=== PATIENT | female | born 1960 | race African-American/Black ===

== ENCOUNTER 2022-08-07 10:05 | Inpatient (IN) | payer MEDICARE, MEDICAID ==
[~2022-08-07] VITALS: Ht 160 cm; Wt 83.0 kg
[2022-08-07 11:15] LABS: BASOPHILS % 0.4 % (0.0-2.0); EOSINOPHILS % 0.2 % (0.0-5.0); HEMATOCRIT. 41.7 % (36.0-48.0); HEMOGLOBIN. 13.7 g/dL (12.0-16.0); MEAN CORPUSCULAR HEMOGLOBIN 28.9 pg (28.0-32.0); MEAN CORPUSCULAR VOLUME 88.4 fL (81.0-99.0); MEAN PLATELET VOLUME 7.4 fl (7.4-10.4); MONOCYTES % 5.4 % (2.0-8.0); PLATELET 227 x1000/uL (130-400); RED BLOOD CELL COUNT 4.72 mill/uL (4.2-5.4); RED CELL DISTRIBUTION WIDTH 12.4 % (11.6-14.6)
[2022-08-07 11:24] LABS: CHLORIDE 100 mEq/L (98-107)
[2022-08-07 11:28] LABS: INR 0.9; PROTHROMBIN TIME 10.2 sec (9.6-11.0)
[2022-08-07 11:55] LABS: CLARITY URINE CLEAR (CLEAR); COLOR URINE YELLOW (YELLOW); KETONES URINE NEGATIVE (NEGATIVE); LEUKOCYTE ESTERASE URINE NEGATIVE (NEGATIVE); NITRITE URINE NEGATIVE (NEGATIVE); OCCULT BLOOD URINE NEGATIVE (NEGATIVE); PROTEIN URINE NEGATIVE (NEGATIVE); SPECIFIC GRAVITY URINE 1.004 (1.005-1.030); UROBILINOGEN URINE 0.2 E.U./dL (0.2-1.0)
[2022-08-07] MEDS ORDERED: KETOROLAC 60MG/2ML VIAL IM ONE (12:15)
[2022-08-07] MEDS ORDERED: MORPHINE SULFATE 2 MG/ML CPJ (NOT FOR IM USE) IV ONE (13:30)
[2022-08-07] MEDS ORDERED: ONDANSETRON HCL 4MG/2ML INJ IV ONE (14:15)
[2022-08-07] MEDS ORDERED: SODIUM CHLORIDE 0.9% 1,000 ML IV ONE (15:45)
[2022-08-07] MEDS ORDERED: ONDANSETRON HCL 4MG/2ML INJ IV PRN (16:15)
[2022-08-07] MEDS ORDERED: MORPHINE SULFATE 4 MG/ML CPJ (NOT FOR IM USE) IV ONE (16:15)
[2022-08-07 17:12] VITALS: BP 113/80
[2022-08-07] MEDS: MORPHINE SULFATE 2 MG/ML CPJ (NOT FOR IM USE) IV PRN (20:29)
[2022-08-07] MEDS: ONDANSETRON HCL 4MG/2ML INJ IV PRN (20:30)
[2022-08-08] MEDS: MORPHINE SULFATE 2 MG/ML CPJ (NOT FOR IM USE) IV PRN ×3 (04:25→12:28)
[2022-08-08] MEDS: ONDANSETRON HCL 4MG/2ML INJ IV PRN (04:25)
[2022-08-08] MEDS: DEXT 5%/0.45% NACL KCL 20MEQ/L 1,000 ML IV SCH ×4 (05:40→21:04)
[2022-08-08 08:00] VITALS: BP 142/67
[2022-08-08 14:00] VITALS: BP 113/59
[2022-08-08] MEDS ORDERED: CLONIDINE 0.1MG TABLET PO PRN (19:30)
[2022-08-08] MEDS ORDERED: HYDROCODONE/ACETAMINOPHEN 5/325MG TABLET PO PRN (19:30)
[2022-08-08] MEDS ORDERED: ACETAMINOPHEN 325MG TABLET PO PRN (19:30)
[2022-08-08] MEDS ORDERED: NALOXONE HCL 0.4MG/ML VIAL IV PRN (19:45)
[2022-08-08 20:00] VITALS: BP_SYST 116; BP_SYST 142; BP_DIAS 52; BP_DIAS 93
[2022-08-08] MEDS: ENOXAPARIN 40MG/0.4ML SYR SUBCUT SCH (20:00)
[2022-08-08] MEDS ORDERED: PANTOPRAZOLE SODIUM 40 MG/VIAL IV SCH (21:00)
[2022-08-09] MEDS: MORPHINE SULFATE 2 MG/ML CPJ (NOT FOR IM USE) IV PRN (02:30)
[2022-08-09] MEDS: DEXT 5%/0.45% NACL KCL 20MEQ/L 1,000 ML IV SCH ×2 (06:40→13:25)
[2022-08-09 07:09] LABS: BASOPHILS % 0.5 % (0.0-2.0); EOSINOPHILS % 0.4 % (0.0-5.0); HEMATOCRIT. 39.9 % (36.0-48.0); HEMOGLOBIN. 13.1 g/dL (12.0-16.0); LYMPHOCYTES % 33.8 % (20.0-50.0); MEAN CORPUSCULAR HEMOGLOBIN 28.8 pg (28.0-32.0); MEAN CORPUSCULAR VOLUME 87.7 fL (81.0-99.0); MEAN PLATELET VOLUME 7.5 fl (7.4-10.4); MONOCYTES % 8.2 % (2.0-8.0); NEUTROPHILS % 57.1 % (40.0-76.0); PLATELET 209 x1000/uL (130-400); RED BLOOD CELL COUNT 4.55 mill/uL (4.2-5.4); RED CELL DISTRIBUTION WIDTH 12.5 % (11.6-14.6)
[2022-08-09 07:51] LABS: CHLORIDE 104 mEq/L (98-107)
[2022-08-09 07:59] VITALS: BP 123/65
[2022-08-09 08:04] LABS: PHOSPHORUS 3.1 mg/dL (2.5-4.9)
[2022-08-09 12:00] VITALS: BP 124/54
[2022-08-09] MEDS: LACTOBACILLUS GG CAPSULE PO SCH (13:24)
[2022-08-09] MEDS ORDERED: SENN-257 MT (14:56)
[2022-08-09] MEDS ORDERED: LACT1CAP77 PO (14:56)
[2022-08-09] MEDS ORDERED: PSYL0.4C2 MT (14:56)
[2022-08-09 16:00] VITALS: BP 111/46
[2022-08-09 20:00] VITALS: BP 139/57
[2022-08-09] MEDS ORDERED: PANTOPRAZOLE 40MG DR TABLET PO SCH (21:00)
[2022-08-09] MEDS: ENOXAPARIN 40MG/0.4ML SYR SUBCUT SCH (21:37)
[2022-08-10] VITALS: BP 128/60
[2022-08-10 04:00] VITALS: BP 129/59
[2022-08-10] MEDS: LACTOBACILLUS GG CAPSULE PO SCH (08:23)
[2022-08-10 08:58] VITALS: BP 136/66
== END 2022-08-10 09:12 | disposition home or self-care (01) | DRG 392 ==
LOC: ER 10:05 → ENRESERV 16:06 → 4WST 16:43
PROVIDERS: ADMIT Internal Medicine; ATTEND Internal Medicine
DX: K52.9 Noninfective gastroenteritis and colitis, unspecified (principal); K56.600 Partial intestinal obstruction, unspecified as to cause; I10 Essential (primary) hypertension; Z79.899 Other long term (current) drug therapy; Z98.84 Bariatric surgery status; Z82.49 Family history of ischemic heart disease and other diseases of the circulatory system
CPT/HCPCS: 36415; 74018; 74176; 80048; 80053; 81003; 82962; 83735; 84100; 85025; 93970; 99285; C9113; J1650; J1885; J2270; J2405; J7030